=== PATIENT | female | born 1975 | race American Indian/Alaskan Native ===

== ENCOUNTER 2018-07-22 08:44 | Observation (INO) | payer OTHER ==
[2018-07-18 11:39] LABS: Basophils % (Auto) 0.5 % (0.0-1.8); Eosinophils # (Auto) 0.1 K/mm3 (0.0-0.4); Eosinophils % (Auto) 2.4 % (0.0-4.3); Hematocrit 31.1 % (30.3-42.9); Hemoglobin 9.8 gm/dl (10.1-14.3); Lymphocytes # (Auto) 1.8 K/mm3 (1.2-5.4); Lymphocytes % (Auto) 33.2 % (13.4-35.0); Mean Corpuscular HGB Conc 32 % (30-34); Mean Corpuscular Hemoglobin 23 pg (28-32); Mean Corpuscular Volume 72 fl (79-97); Monocytes # (Auto) 0.3 K/mm3 (0.0-0.8); Monocytes % (Auto) 6.1 % (0.0-7.3); Platelet Count 249 K/mm3 (140-440); Red Blood Count 4.31 M/mm3 (3.65-5.03)
--- NOTE | 2018-07-18 11:41 | Anesthesia Consultation ---
Anesthesia Consult and Med Hx Date of service: 07/18/18 - Airway Anesthetic Teeth Evaluation: Good ROM Head & Neck: Adequate Mental/Hyoid Distance: Adequate Mallampati Class: Class I Intubation Access Assessment: Probably Good - Pulmonary Exam CTA: Yes - Cardiac Exam Cardiac Exam: RRR - Pre-Operative Health Status ASA Pre-Surgery Classification: ASA2 Proposed Anesthetic Plan: General Nerve Block: TAP Block - Pulmonary Hx Smoking: No Hx Respiratory Symptoms: No Hx Sleep Apnea: No - Cardiovascular System Hx Hypertension: No - Central Nervous System Hx Seizures: No (headaches) Hx Psychiatric Problems: No - Gastrointestinal Hx Gastroesophageal Reflux Disease: Yes - Other Systems Hx Alcohol Use: Yes (Occas) Hx Substance Use: Yes (Marijuana occas) Hx Cancer: No Hx Obesity: Yes - Additional Comments Anesthesia Medical History Comments: menorrhagia
--- NOTE | 2018-07-22 10:46 | History and Physical Report ---
History of Present Illness Date of examination: 07/22/18 Chief complaint: Symptomatic uterine fibroids History of present illness: Patient is a 43-year-old black female LMP 07/12/2018 who presented to the office complaining of the pelvic pain and prolonged heavy vaginal bleeding. Pelvic ultrasound showed an enlarged uterus measuring 13 x 9 x 7 cm with a thickened endometrium and 2 fibroids, the largest measuring 6 x 5 cm. She has had a previous tubal ligation and does not desire future fertility. The endometrial biopsy was benign. She is therefore scheduled for a Robotic- Assisted Total Hysterectomy with ovarian conservation. 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 History: fibroids Social history: no significant social history, single Medications and Allergies Allergies Allergy/AdvReac Type Severity Reaction Status Date / Time No Known Allergies Allergy Unverified 07/16/18 11:33 Home Medications Medication Instructions Recorded Confirmed Last Taken Type raNITIdine HCl [Ranitidine HCl] 75 mg PO PRN PRN 07/16/18 07/16/18 Unknown History Review of Systems All systems: negative - Vital Signs Vital signs: Vital Signs Temp Pulse Resp BP 99.2 F 60 18 124/84 07/18/18 11:10 07/18/18 11:10 07/18/18 11:10 07/18/18 11:10 Temp Pulse Resp BP Pulse Ox 97.5 F L 56 L 16 157/96 100 07/22/18 10:30 07/22/18 10:30 07/22/18 10:30 07/22/18 10:30 07/22/18 10:30 - Physical Exam Breasts: Positive: deferred Cardiovascular: Regular rate Lungs: Positive: Clear to auscultation Abdomen: Positive: normal appearance Genitourinary (Female): Positive: normal external genitalia Uterus: Positive: enlarged Extremities: Positive: normal Results Result Diagrams: 07/18/18 11:20 All other labs normal. Ultrasound: report reviewed Assessment and Plan - Patient Problems (1) Uterine fibroid Onset Date: 07/22/18 Current Visit: Yes Status: Acute Qualifiers: Uterine leiomyoma location: intramural and submucous Qualified Code(s): D25.1 - Intramural leiomyoma of uterus; D25.0 - Submucous leiomyoma of uterus Plan to address problem: A: Symptomatic uterine fibroids Menorrhagia - most likely due to uterine fibroids Dysmenorrhea - most likely due to uterine fibroids P: Admit for a Robotic Assisted Total Hysterectomy with Bilateral salpingectomy (2) Menorrhagia with irregular cycle Onset Date: 07/22/18 Current Visit: Yes Status: Acute (3) Dysmenorrhea Onset Date: 07/22/18 Current Visit: Yes Status: Acute
[2018-07-22] MEDS ORDERED: DIPRIVAN 10 MG/ML IV ONE (10:50)
[2018-07-22] MEDS ORDERED: DILAUDID ONE ×2 (10:51)
[2018-07-22] MEDS ORDERED: ANCEF/STERILE WATER 2 GM/20 ML 2 GM/20 ML SYRINGE IV SCH (11:00)
[2018-07-22] MEDS ORDERED: LACTATED RINGERS 1,000 ML IV SCH (11:00)
[2018-07-22] MEDS ORDERED: NEOSPORIN GU IR ONE ×2 (11:06→13:26)
[2018-07-22] MEDS ORDERED: VERSED ONE (12:11)
[2018-07-22] MEDS ORDERED: MARCAINE-EPI 0.25%-1:200,000 INFILTRATI ONE ×2 (12:21→13:27)
[2018-07-22] MEDS ORDERED: VERSED IV NR (13:00)
[2018-07-22] MEDS ORDERED: BLOXIVERZ ONE (13:19)
[2018-07-22] MEDS ORDERED: TORADOL ONE (13:19)
[2018-07-22] MEDS ORDERED: DECADRON ONE (13:20)
[2018-07-22] MEDS ORDERED: XYLOCAINE MPF 2% ONE (13:20)
[2018-07-22] MEDS ORDERED: NACL 0.9% IR ONE ×2 (13:26)
[2018-07-22] MEDS ORDERED: D5LR 1,000 ML IV ONE (14:14)
--- NOTE | 2018-07-22 14:15 | Operative Report ---
Operative Report Operative Report: Date of procedure: 07/22/2018 Pre-operative diagnosis: 1. Symptomatic uterine fibroids 2. Menorrhagia 3. Dysmenorrhea Post-operative diagnosis: Same Procedure name(s): 1. Robotic-assisted total hysterectomy 2. Bilateral salpingectomy Surgeon: Kiel Parr MD Fishing Vessel Captain: Fatimah Gamboa CSA Anesthesia: Gen. endotracheal intubation by Dr. Barron EBL: 50 mL's Findings: A 14-16 week size multi-myomatous uterus. Fallopian tubes showed evidence of previous tubal ligation bilaterally. Normal ovaries bilaterally Procedure: After the patient's first correctly identified she was prepped and draped in the usual sterile fashion and placed in the dorsolithotomy position. The bladder was first catheterized using Posadas catheter and the speculum was placed in the vagina and the anterior lip of the cervix was grasped using a single-tooth tenaculum, and the medium Vesicare cup was placed. The tenaculum and speculum was then removed from the vagina and attention was then turned to the abdomen. The skin knife was used to make a small incision approximately 5 cm above the umbilicus through which a 12 mm trocar was placed under direct visualization. After adequate amount of abdominal insufflation visualization of the pelvic organs found the uterus to be enlarged and the tubes showed evidence of previous tubal ligation bilaterally. The ovaries were normal bilaterally. A right and left paramedian incision was made through which the 8 mm trochars were placed under direct visualization and a 5 mm trocar was placed in the lower upper quadrant. The patient was then placed in steep Trendelenburg positioning and the robot was docked on the patient's left side. After all the robotic ports were connected and adequate functioning of the robotic arms were tested the surgeon then proceeded to the console to begin the hysterectomy. First the left round ligament was grasped, cauterized and cut, the left utero- ovarian ligament was grasped, cauterized and cut, and the left fallopian tube also grasped, cauterized and cut along the mesosalpinx, thus freeing the left ovary from the left uterine sidewall. The same procedure was performed on the right. The right round ligament was grasped, cauterized and cut, the right utero-ovarian ligament was grasped, cauterized and cut, and the right fallopian tube also grasped, cauterized and cut along the mesosalpinx thus freeing the right ovary from the right uterine sidewall. The bladder flap was taken down anteriorly and the uterine vessels were grasped, cauterized and cut bilaterally. The cardinal ligaments were sequentially grasped, cauterized and cut down to the level of the uterosacral ligaments. At this time the posterior colpotomy was performed over the Vcare cup, and the cervix was circumscribed beginning posteriorly and meeting anteriorly until the cervix was freed. The cervix and uterus was then removed through the vagina and sent to pathology. The vaginal cuff was then closed using 2-0 Vloc suture in a running fashion. Irrigation was then performed and after good hemostasis was achieved the procedure was considered complete. The Tisseel sealant was then sprayed across the vaginal cuff site, and after excellent hemostasis was assured Interceed was placed across the vaginal cuff site. All instruments were then removed from the abdominal cavity. And each incision was closed using 0 Vicryl suture in a [id number] configuration on the fascia followed by 4-0 Monocryl suture in a sub-cuticular fashion on the skin. Each incision was also infiltrated using 0.5% Marcaine solution. The vaginal pack was removed. The patient tolerated the procedure well and was transported to the recovery room in stable condition.
[2018-07-22] MEDS ORDERED: NARCAN 0.4 MG/1 ML IV PRN ×3 (14:18→14:58)
[2018-07-22] MEDS ORDERED: MORPHINE PCA 30MG/30ML IV ONE (14:37)
[2018-07-22] MEDS ORDERED: PERCOCET 5/325 PO PRN (14:58)
[2018-07-22] MEDS ORDERED: REGLAN IV PRN (14:58)
[2018-07-22] MEDS ORDERED: BENADRYL IV PRN (14:58)
[2018-07-22] MEDS ORDERED: NORCO 5/325 PO PRN (14:58)
[2018-07-22] MEDS ORDERED: MILK OF MAGNESIA PO PRN (14:58)
[2018-07-22] MEDS ORDERED: TYLENOL PO PRN (14:58)
[2018-07-22] MEDS ORDERED: ZOFRAN IV PRN ×2 (14:58)
[2018-07-22] MEDS ORDERED: PHENERGAN PR PRN (14:58)
[2018-07-22] MEDS ORDERED: D5LR 1,000 ML IV SCH (15:00)
[2018-07-22] MEDS ORDERED: NACL 0.9% 1000 ML 1,000 ML IV SCH (15:00)
[2018-07-22] MEDS ORDERED: MORPHINE PCA 30MG/30ML IV SCH (15:00)
[2018-07-22] MEDS: COLACE PO SCH (21:32)
[2018-07-22] MEDS: ANCEF/NS 1 GM/50 ML 1 GM/50 ML BAG IV SCH (21:33)
[2018-07-22] MEDS: TORADOL IV SCH (21:34)
[2018-07-23] MEDS: ANCEF/NS 1 GM/50 ML 1 GM/50 ML BAG IV SCH (03:39)
[2018-07-23] MEDS: TORADOL IV SCH ×2 (03:40→10:27)
[2018-07-23 06:19] LABS: Hematocrit 31.5 % (30.3-42.9)
--- NOTE | 2018-07-23 08:06 | Progress Note ---
Assessment and Plan - Patient Problems (1) Uterine fibroid Onset Date: 07/22/18 Current Visit: Yes Status: Resolved Qualifiers: Uterine leiomyoma location: intramural and submucous Qualified Code(s): D25.1 - Intramural leiomyoma of uterus; D25.0 - Submucous leiomyoma of uterus (2) Menorrhagia with irregular cycle Onset Date: 07/22/18 Current Visit: Yes Status: Resolved (3) Dysmenorrhea Onset Date: 07/22/18 Current Visit: Yes Status: Resolved (4) Status post robot-assisted surgical procedure Onset Date: 07/23/18 Current Visit: Yes Status: Resolved Plan to address problem: A: S/P RATH - POD #1 Doing well Asymptomatic anemia - stable P: May go home this afternoon. Subjective - Subjective Date of service: 07/23/18 Principal diagnosis: s/p RATH - POD #1 Interval history: Patient is feeling well s/p a Robotic-Assisted Total Hysterectomy. She is tolerating a liquid diet without nausea or vomiting, ambulating and voiding without difficulty. Patient reports: appetite normal, voiding normally, pain well controlled, ambulating normally, no dizzy ambulation, no flatus, no nauseated Objective - Vital Signs Latest vital signs: Vital Signs Temp Pulse Resp BP Pulse Ox 07/23/18 04:00 18 07/23/18 03:44 98.1 F 63 20 157/74 100 07/23/18 02:00 18 07/22/18 23:22 99.2 F 67 20 134/85 100 07/22/18 22:53 20 07/22/18 22:00 20 07/22/18 19:54 98.7 F 92 H 20 145/102 99 07/22/18 16:30 54 L 14 132/78 07/22/18 16:15 56 L 12 122/68 07/22/18 16:00 98 F 51 L 12 134/75 07/22/18 15:30 49 L 13 166/77 07/22/18 15:15 49 L 11 L 152/84 07/22/18 15:00 58 L 13 130/82 07/22/18 14:45 63 12 146/78 07/22/18 14:40 66 12 147/83 07/22/18 14:35 55 L 12 140/77 07/22/18 14:30 69 14 157/87 100 07/22/18 14:25 97.5 F L 84 14 147/79 99 07/22/18 10:57 97.5 F L 56 L 16 157/96 100 07/22/18 10:30 97.5 F L 56 L 16 157/96 100 Intake and Output 07/22/18 07/23/18 07/23/18 22:59 06:59 14:59 Intake Total 250 Output Total 720 3000 Balance -470 -3000 Intake: IV 50 ANCEF/NS 1 GM/50 ML 1 gm 50 In 50 ml @ 100 mls/hr IV Q8H [facility] Rx#:[id number] Oral 200 Output: Urine 720 3000 Indwelling Catheter 3000 Uretheral (Posadas) 560 Other: Total, Intake Amount 200 Total, Output Amount 3000 Voiding Method Indwelling Catheter - Exam Breasts: Present: deferred Cardiovascular: Present: Regular rate Lungs: Present: Clear to auscultation Abdomen: Present: normal appearance, soft Extremities: Present: normal Incision: Present: normal, dry - Labs Labs: Abnormal lab results 07/23/18 Range/Units 05:59 Hgb 10.0 L (10.1-14.3) gm/dl Laboratory Tests 07/18/18 07/18/18 07/22/18 11:20 11:20 10:30 WBC 5.3 RBC 4.31 Hgb 9.8 L Hct 31.1 MCV 72 L MCH 23 L MCHC 32 RDW 19.0 H Plt Count 249 Lymph % (Auto) 33.2 Tucker % (Auto) 6.1 Eos % (Auto) 2.4 Baso % (Auto) 0.5 Lymph # 1.8 Tucker # 0.3 Eos # 0.1 Baso # 0.0 Seg Neutrophils % 57.8 Seg Neutrophils # 3.1 HCG, Qual Negative Blood Type B POSITIVE Antibody Screen Negative 07/23/18 05:59 WBC RBC Hgb 10.0 L Hct 31.5 MCV MCH MCHC RDW Plt Count Lymph % (Auto) Tucker % (Auto) Eos % (Auto) Baso % (Auto) Lymph # Tucker # Eos # Baso # Seg Neutrophils % Seg Neutrophils # HCG, Qual Blood Type Antibody Screen
--- NOTE | 2018-07-23 08:29 | Discharge Summary ---
Providers - Providers Date of Admission: 07/22/18 14:58 Date of discharge: 07/23/18 Attending physician: DENISE CARBAJAL Primary care physician: SHASHI NO Hospitalization Reason for admission: other (Symptomatic uterine fibroids; Menorrhagia; Dysmenorrhea) Procedure: other (Robotic Assisted Total Hysterectomy) Episiotomy: none Laceration: none Incision: normal, dry Other procedures: none complications: none Discharge diagnosis: other (s/p RATH) Hospital course: Patient is a 43-year-old black female LMP 07/12/2018 who presented to the office complaining of the pelvic pain and prolonged heavy vaginal bleeding. Pelvic ultrasound showed an enlarged uterus measuring 13 x 9 x 7 cm with a thickened endometrium and 2 fibroids, the largest measuring 6 x 5 cm. She has had a previous tubal ligation and did not desire future fertility. She underwent an uncomplicated Robotic-Assisted Total Hysterectomy with Bilateral salpingectomy, and tolerated the procedure well. By POD #1 she was tolerating a reg diet without nausea or vomiting, ambulating and voiding without difficulty , and therefore discharged to home on POD #1 in stable condition. Condition at discharge: Good Disposition: DC-01 TO HOME OR SELFCARE - Discharge Diagnoses (1) Uterine fibroid Status: Resolved Qualifiers: Uterine leiomyoma location: intramural and submucous Qualified Code(s): D25.1 - Intramural leiomyoma of uterus; D25.0 - Submucous leiomyoma of uterus (2) Menorrhagia with irregular cycle Status: Resolved (3) Dysmenorrhea Status: Resolved (4) Status post robot-assisted surgical procedure Status: Resolved Plan - Discharge Medications Prescriptions: HYDROcodone/APAP 5-325 [[place] 5-325 mg TAB] 1 each PO Q6HR PRN #30 tablet PRN Reason: Pain, Moderate (4-6) Ibuprofen [Motrin] 800 mg PO Q8HR PRN #30 tablet PRN Reason: Moder Pain Unrelieved By [place] - Provider Discharge Summary Activity: routine, no sex for 6 weeks, no heavy lifting 4 weeks, no strenuous exercise Diet: routine Instructions: routine Additional instructions: [] Smoking cessation referral if applicable(refer to patient education folder for contact #) [] Refer to [facility]'s [facility] Booklet Call your doctor immediately for: * Fever > 100.5 * Heavy vaginal bleeding ( >1 pad per hour) * Severe persistent headache * Shortness of breath * Reddened, hot, painful area to leg or breast * Drainage or odor from incision. * Keep incision clean and dry at all times and follow doctor's instructions regarding bathing/showering - Follow up plan Follow up: SHASHI NO MD [Primary Care Provider] - 7 Days DENISE CARBAJAL MD [Staff Physician] - 14 Days
[2018-07-23] MEDS: COLACE PO SCH (10:27)
[2018-07-23 19:15] VITALS: BP 123/83
== END 2018-07-23 15:06 | disposition home or self-care (01) ==
LOC: OR 08:44 → OB 14:58
PROVIDERS: ADMIT Obstetrics & Gynecology; ATTEND Obstetrics & Gynecology
DX: N92.1 Excessive and frequent menstruation with irregular cycle (principal); N94.6 Dysmenorrhea, unspecified; D25.0 Submucous leiomyoma of uterus; D25.1 Intramural leiomyoma of uterus; K21.9 Gastro-esophageal reflux disease without esophagitis; E66.9 Obesity, unspecified; Z68.31 Body mass index [BMI] 31.0-31.9, adult; Z72.89 Other problems related to lifestyle
CPT/HCPCS: 36415; 58573; 84703; 85014; 85018; 85025; 86850; 86900; 86901; 88307; 96365; 96366; 96375; 96376; A4217; C1765; C9250; G0378; J0690; J1100; J1170; J1885; J2250; J2270; J2704; J2710; J7120; J7121; S2900